=== PATIENT | female | born 1935 | race Caucasian/White ===

== ENCOUNTER 2019-11-30 05:26 | Inpatient (IN) | payer MEDICARE, OTHER ==
[~2019-11-30] VITALS: Ht 152.4 cm; Wt 59.4 kg
--- NOTE | 2019-11-30 05:39 | NUR ---
PATIENT CAME TO ER BED 2 C/O SOB BIB RA. PATIENT IS IRISH SPEAKING ONLY. PATIENT IS AAOX4. BREATHING EVENLY AND UNLABORED ON ROOM AIR. CONNECTED TO THE MONITOR.
--- NOTE | 2019-11-30 05:43 | NUR ---
NOTICED O2 AT 90% ON 4 LITERS. PT PLACED ON 6 LITERS O2 SATTING AT 97%. MADE AWARE
[2019-11-30 05:49] LABS: BASOPHILS % (AUTO) 0.4 % (0.0-2.0); EOSINOPHILS % (AUTO) 0.3 % (0.0-6.0); HEMATOCRIT 28 % (33-45); HEMOGLOBIN 9.6 g/dL (11.5-14.8); LYMPHOCYTES # (AUTO) 1.7 /CMM (0.8-4.8); LYMPHOCYTES % (AUTO) 15.6 % (20.0-44.0); MEAN CORPUSCULAR HGB CONC 35 g/dl (31.0-36.0); MEAN CORPUSCULAR VOLUME 86 fL (82-100); MONOCYTES # (AUTO) 1.2 /CMM (0.1-1.30); MONOCYTES % (AUTO) 10.8 % (2.0-12.0); NEUTROPHILS # (AUTO) 7.8 /CMM (1.8-8.9); NEUTROPHILS % (AUTO) 72.9 % (43.0-81.0); PLATELET COUNT (AUTO) 268 /CMM (150-450); RED BLOOD CELL COUNT(AUTO) 3.24 MIL/uL (4.0-5.2); WHITE BLOOD COUNT (AUTO) 10.7 K/uL (4.3-11.0)
[2019-11-30 06:50] LABS: CALCIUM, SERUM 9.3 mg/dL (8.5-10.1); CARBON DIOXIDE 32 mmol/L (21-32); CHLORIDE 96 mmol/L (98-107); CREATININE 3.9 mg/dL (0.6-1.3); GLUCOSE 156 mg/dL (74-106); POTASSIUM 3.2 mmol/L (3.5-5.1); SODIUM SERUM 137 mmol/L (136-145); UREA NITROGEN, BLOOD 22 mg/dL (7-18)
--- NOTE | 2019-11-30 07:30 | NUR ---
PT ASLEEP, EASILY AWAKEN BY VERBAL STIMULI. DENIES CP, SOB, DIZZINESS, N/V AT THIS TIME. WILL CONT TO MONITOR.
--- NOTE | 2019-11-30 08:24 | NUR ---
[facility] PAGED
[2019-11-30] MEDS ORDERED: BUME0.5T5 PO (08:25)
[2019-11-30] MEDS ORDERED: SEVE800T28 PO (08:25)
[2019-11-30] MEDS ORDERED: LISI10TA5 PO (08:25)
[2019-11-30] MEDS ORDERED: LEVO75TA7 PO (08:25)
[2019-11-30] MEDS ORDERED: AMLO10TA7 PO (08:25)
[2019-11-30] MEDS ORDERED: ATOR10TA PO (08:25)
[2019-11-30] MEDS ORDERED: INSU100V27 SQ (08:25)
[2019-11-30] MEDS ORDERED: METO25TA3 PO (08:25)
[2019-11-30] MEDS ORDERED: INSU300I SQ (08:25)
[2019-11-30] MEDS ORDERED: GABA-532 PO (08:25)
[2019-11-30] MEDS ORDERED: APIX2.5T PO (08:25)
[2019-11-30] MEDS ORDERED: CHOL100040 PO (08:25)
--- NOTE | 2019-11-30 08:32 | NUR ---
CALLED HOUSE SUP FOR TELE BED.
--- NOTE | 2019-11-30 08:57 | NUR ---
NURSING SUP GAVE TELE BED [id number]. NURSE NAME ROSALIE.
[2019-11-30] MEDS ORDERED: Z GUARD REMEDY 2 OZ OINT TP PRN (09:30)
[2019-11-30] MEDS ORDERED: ONDANSETRON HCL/PF 4 MG/2 ML VIAL IVP PRN (09:30)
[2019-11-30] MEDS ORDERED: HYDROCODONE/APAP 5/325MG TABLET PO PRN (09:30)
[2019-11-30] MEDS ORDERED: MAG HYDROX/AL HYDROX/SIMETH 30 ML UDC PO PRN (09:30)
[2019-11-30] MEDS ORDERED: ACETAMINOPHEN 325 MG TABLET PO PRN (09:30)
[2019-11-30] MEDS ORDERED: DEXTROSE 50%-WATER 50 ML DISP.SYRIN IV PRN (09:30)
[2019-11-30] MEDS ORDERED: MAGNESIUM HYDROXIDE 30 ML UDC PO PRN (09:30)
--- NOTE | 2019-11-30 10:00 | NUR ---
PT SITTING UP, RR EVEN & UNLABORED. NAD NOTED AT THIS TIME. WILL CONT TO MONITOR.
--- NOTE | 2019-11-30 10:58 | NUR ---
PT STARTED C/O SOB, O2 SAT ON 6L 85%. PLACED ON 15L PER ERMD ORDER, 02 SAT 100%, PT LATHA WELL. PT STABLE AT THIS TIME. DENIES CP, DIZZINESS, N/V AT THIS TIME. WILL CONT TO MONITOR.
[2019-11-30] MEDS ORDERED: FUROSEMIDE 40 MG/4 ML VIAL IV SCH (11:00)
--- NOTE | 2019-11-30 11:15 | NUR ---
PLACED ON 6L OF O2 LATHA WELL, O2 SAT 100% AT THIS TIME. WILL CONT TO MONITOR.
[2019-11-30] MEDS ORDERED: FUROSEMIDE 40 MG/4 ML VIAL ONE (11:25)
[2019-11-30] MEDS: FUROSEMIDE 40 MG/4 ML VIAL IV SCH ×2 (11:29→18:43)
--- NOTE | 2019-11-30 11:35 | NUR ---
REPORT GIVEN TO ALHAJI HAWKINS FOR SUNSHINE.
--- NOTE | 2019-11-30 11:50 | NUR ---
NEON GLASS BLOWERGAS OPERATIONS ANALYST NOTES Received Patient resting in bed. A/O x 4, Honduran speaking. VS stable with no acute distress. Breathing even and unlabored on 6LPM via NC with no respiratory distress. Denies pain. No signs and symptoms of pain. Skin clean and intact. Telemonitor in place and patent reading SR with HR-76. RUCW Permacath clean and intact. 20g PIV on left hand clean, intact, patent and flushing well. Safety precautions in place. Bed locked and set to lowest position with side rails x 2 up. All needs rendered at this time. Call light within reach. Will continue to monitor.
[2019-11-30] MEDS: BLOOD SUGAR DIAGNOSTIC 1 EACH STRIP VI SCH ×3 (12:03→21:43)
[2019-11-30] MEDS: GABAPENTIN 300 MG CAPSULE PO SCH (12:32)
[2019-11-30] MEDS: CHOLECALCIFEROL 1,000 UNIT TABLET (VIT D3) PO SCH (12:32)
[2019-11-30] MEDS: SEVELAMER CARBONATE 800 MG TABLET PO SCH ×2 (12:32→18:44)
[2019-11-30] MEDS: INSULIN REGULAR, HUMAN 100 UNIT/ML 3 ML VIAL SQ PRN (12:35)
[2019-11-30] MEDS ORDERED: BUMETANIDE 0.5 MG PO SCH (17:00)
[2019-11-30] MEDS: AMLODIPINE BESYLATE 10 MG TABLET PO SCH (18:44)
[2019-11-30] MEDS: APIXABAN 2.5 MG TABLET PO SCH (18:47)
--- NOTE | 2019-11-30 19:06 | NUR ---
ETIQUETTE TEACHER CLOSING NOTES Patient resting in bed. A/O x 4, Setswana speaking. VS stable with no acute distress. Breathing even and unlabored on 10LPM via humidified NC with no respiratory distress. Denies pain. No signs and symptoms of pain. Telemonitor in place and patent reading SR with HR-66. RUCW Permacath clean and intact. 20g PIV on left hand clean, intact, patent and flushing well. Safety precautions in place. Bed locked and set to lowest position with side rails x 2 up. All needs rendered at this time. Call light within reach. Will endorse plan of care to oncoming shift.
--- NOTE | 2019-11-30 19:43 | NUR ---
RN OPENING NOTES PATIENT RECEIVED RESTING IN BED A/O X 4. ON 10 L OF O2 WITH HUMIDIFIED NC WITH BREATHING EVEN AND LABORED. NO SIGNS OF ACUTE DISTRESS. NO COMPLAINTS OF PAIN OR DISCOMFORT AT THE MOMENT. IV LOCATED ON L HAND #20 SL. RCW PERMCATH NOTED AND IN PLACE. SAFETY PRECAUTIONS IN PLACE WITH BED IN LOWEST POSITION, CALL LIGHT WITHIN REACH, BREAKS ON, SIDE RAILS UP. WILL CONTINUE TO MONITOR THROUGHOUT THE NIGHT.
[2019-11-30 20:00] VITALS: BP 146/70
[2019-11-30] MEDS: *INSULIN REGULAR(HUMULIN R)HUM 100 UNIT/ML VIAL SQ PRN (21:43)
[2019-12-01] VITALS: BP 140/69
--- NOTE | 2019-12-01 02:41 | NUR ---
RN NOTES BRIDGE GANG WORKER INFORMED PATIENT WENT FROM SR TO CONTROLLED A FIB. BPM DEVELOPER JOSUE INFORMED AND STAT EKG ORDERED. ORDER CARRIED OUT. WILL CONTINUE TO MONITOR.
--- NOTE | 2019-12-01 03:27 | NUR ---
RN NOTES EKG RESULTS RELAYED TO REUBEN SALAS. METOPROLOL 5MG IVP ONE TIME ORDERED. ORDERS CARRIED OUT. WILL MONITOR FOR CHANGE IN TELE MONITOR.
[2019-12-01] MEDS ORDERED: METOPROLOL TARTRATE INJ 5 MG/5 ML AMPUL IVP ONE (03:30)
[2019-12-01] MEDS: BLOOD SUGAR DIAGNOSTIC 1 EACH STRIP VI SCH ×4 (06:47→21:38)
[2019-12-01] MEDS: INSULIN REGULAR, HUMAN 100 UNIT/ML 3 ML VIAL SQ PRN ×3 (06:48→18:05)
--- NOTE | 2019-12-01 07:01 | NUR ---
RN CLOSING NOTES PATIEN RESTING IN BED A/O X 4. ON 5L L OF O2 WITH HUMIDIFIED NC WITH BREATHING EVEN AND LABORED. NO SIGNS OF ACUTE DISTRESS. NO COMPLAINTS OF PAIN OR DISCOMFORT AT THE MOMENT. IV LOCATED ON L HAND #20 SL. TELE MONITOR READING A FIB. RCW PERMCATH NOTED AND IN PLACE. SAFETY PRECAUTIONS IN PLACE WITH BED IN LOWEST POSITION, CALL LIGHT WITHIN REACH, BREAKS ON, SIDE RAILS UP. ALL NEEDS NEEDS ATTENDED TO. PATIENT KEPT CLEAN AND DRY THROUGHOUT THE NIGHT. WILL ENDORSE TO ONCOMING SHIFT ABOUT SUNSHINE.
--- NOTE | 2019-12-01 07:30 | NUR ---
TELE/RN OPENING NOTE Received patient in bed, A&O x 4, greek speaking. Denies any pain/discomfort at this time. Breathing even and non-labored, no SOB noted. No respiratory or cardiac distress noted. On tele monitor, reading Afib 87. IV access noted on L hand #20 g, patent and intact, and flushing well. Right chest wall permacath in place. Bed locked to its lowest position, side rails x 2 up, call light in reach. Will continue with current medical management. Addendum: 12/01/19 at 0759 by LANCE GUERRA RN On 5L humidified oxygen via NC
[2019-12-01 07:34] LABS: BASOPHILS % (AUTO) 0.3 % (0.0-2.0); EOSINOPHILS % (AUTO) 0.7 % (0.0-6.0); HEMATOCRIT 28 % (33-45); HEMOGLOBIN 9.4 g/dL (11.5-14.8); LYMPHOCYTES # (AUTO) 1.4 /CMM (0.8-4.8); LYMPHOCYTES % (AUTO) 14.4 % (20.0-44.0); MEAN CORPUSCULAR HGB CONC 34 g/dl (31.0-36.0); MEAN CORPUSCULAR VOLUME 87 fL (82-100); MONOCYTES # (AUTO) 1.1 /CMM (0.1-1.30); MONOCYTES % (AUTO) 10.8 % (2.0-12.0); NEUTROPHILS # (AUTO) 7.4 /CMM (1.8-8.9); NEUTROPHILS % (AUTO) 73.8 % (43.0-81.0); PLATELET COUNT (AUTO) 252 /CMM (150-450); RED BLOOD CELL COUNT(AUTO) 3.16 MIL/uL (4.0-5.2)
[2019-12-01 07:36] LABS: ALANINE AMINOTRANSFERASE 16 U/L (12-78); ALKALINE PHOSPHATASE 120 U/L (46-116); ASPARTATE AMINOTRANSFERASE 22 U/L (15-37); BILIRUBIN,TOTAL 1.3 mg/dL (0.2-1.0); CALCIUM, SERUM 9.3 mg/dL (8.5-10.1); CARBON DIOXIDE 30 mmol/L (21-32); CHLORIDE 99 mmol/L (98-107); CREATININE 4.1 mg/dL (0.6-1.3); GLUCOSE 142 mg/dL (74-106); MAGNESIUM 2.3 mg/dL (1.8-2.4); PHOSPHORUS 2.5 mg/dL (2.5-4.9); POTASSIUM 4.1 mmol/L (3.5-5.1); SODIUM SERUM 137 mmol/L (136-145); TOTAL PROTEIN, SERUM 7.8 g/dL (6.4-8.2); UREA NITROGEN, BLOOD 19 mg/dL (7-18)
[2019-12-01] MEDS: LEVOTHYROXINE SODIUM 75 MCG TABLET PO SCH (08:21)
[2019-12-01] MEDS: SEVELAMER CARBONATE 800 MG TABLET PO SCH ×3 (08:21→18:03)
[2019-12-01] MEDS: FUROSEMIDE 40 MG/4 ML VIAL IV SCH ×2 (08:26→17:00)
[2019-12-01] MEDS: METOPROLOL SUCCINATE 50 MG TAB.SR.24H PO SCH (08:27)
[2019-12-01] MEDS: CHOLECALCIFEROL 1,000 UNIT TABLET (VIT D3) PO SCH (08:27)
[2019-12-01] MEDS: GABAPENTIN 300 MG CAPSULE PO SCH (08:28)
[2019-12-01] MEDS: ATORVASTATIN 10 MG TABLET PO SCH (08:29)
[2019-12-01] MEDS: LISINOPRIL (10MG) 10 MG TABLET PO SCH (08:29)
[2019-12-01] MEDS: APIXABAN 2.5 MG TABLET PO SCH ×2 (08:30→17:00)
[2019-12-01] MEDS ORDERED: AMIODARONE 450 MG in IV D5W 250 ML IV PRN (09:00)
[2019-12-01] MEDS ORDERED: AMIODARONE 150 MG in IV D5W 100 ML IV ONE (09:30)
--- NOTE | 2019-12-01 11:10 | NUR ---
TELE/RN NOTE Patient transferred to [facility] via bed with all medications and belongings in hand. Denies any pain/discomfort at this time. Breathing even and non-labored on 5 L oxygen via NC. No cardiac distress noted. On tele monitor reading Afib 81. IV access on L hand #20 g remained patent and intact. R chest permacath in place. Endorsed to [facility] nurse for SUNSHINE.
--- NOTE | 2019-12-01 11:15 | NUR ---
RN NOTES RECEIVED PT FROM [facility]. ON AMIO DRIP. VS STABLE. WILL CONTINUE TO MONITOR
[2019-12-01] MEDS: AMIODARONE 450 MG in IV D5W 250 ML IV PRN ×2 (11:37→19:28)
--- NOTE | 2019-12-01 13:12 | NUR ---
RN WILL CALL DUE TO HIGH CRE 4.1
[2019-12-01] MEDS: AMLODIPINE BESYLATE 10 MG TABLET PO SCH (18:01)
--- NOTE | 2019-12-01 19:30 | NUR ---
RN OPENING NOTES, PATIENT RESTING IN BED AWAKE A/O X 4, ABLE TO VERBALIZED NEEDS AND CONCERNS, ON 5L HUMIDIFIED O2 VIA NC. WITH OPTIMAL O2 SAT LEVEL, NO SOB OR ANY ACUTE REPARATORY DISTRESS AT THIS TIME, NO COMPLAINS OF CHEST PAIN, WITH LEFT HAND PATENT AND INTACT, ON AMIO DRIP INFUSING WELL AND PATIENT TOLERATED WELL, ALL NEEDS ATTENDED, SAFETY MEASURES OBSERVED, CALL LIGHT WITHIN REACH, BED LOCKED AND AT LOWEST POSITION, WILL CONTINUE TO MONITOR CLOSELY.
--- NOTE | 2019-12-01 19:46 | NUR ---
RN CLOSING NOTES PT RESTING IN BED. A/O X 4. ON 5L HUMIDIFIED O2 VIA NC. NO SOB. NO PAIN REPORTED AT THIS TIME. WITH RENARD INTACT, PATENT AND FLUSHED. AMIO DRIP INFUSING WELL. ALL MEDS GIVEN, NEEDS ATTENDED. SAFETY MEASURES OBSERVED. CALL LIGHT WITHIN REACH. BED LOCKED AND AT LOWEST POSITION. WILL ENDORSE TO NIHGT SHIFT FOR SUNSHINE
[2019-12-01 20:00] VITALS: BP 158/88
--- NOTE | 2019-12-01 21:05 | NUR ---
RN TD NOTES, ENDORSED BY CHARGE NURSE THAT PATIENT SUPPOSE TO HAVE HD TODAY BUT BECAUSE SHE IS IN AMIODARONE DRIP SHE WILL HAVE TOMORROW, HD NURSE HERE AT THIS TIME TO START HD, AND TOLD HER THAT WAS ENDORSED TO ME NO HD TILL TOMORROW, SHE SAID NO THEY ALWAYS TO IT LIKE THAT WITH PATIENT ON MEDICATION IN ICU, CALLED PRECISION DYER HOT WALKER JOSUE HERNANDES AND PER HER CALLED THE HAIR CLIPPER POWER TO MAKE SURE, CALLED DR RAY AND ASKED HIM IF HE WANTS HD TO BE DONE TODAY OR NO AND ADVISED HIM THAT PATIENT IN ON AMIODARONE, STATED IS OK TO DO HD.
--- NOTE | 2019-12-01 21:14 | NUR ---
RN TD NOTES, PATIENT ON HD AT THIS TIME, HR DROP TO 36 ON TELE MONITOR FOR A SECOND AND GOT CONVERTED TO NSR RIGHT AWAY INCREASED TO 50S AND RIGHT AWAY TO 60S, NO COMPLAIN OR ANY DISCOMFORT FROM PATIENT, WILL CONTINUE TO MONITOR CLOSELY.
[2019-12-01] MEDS: *INSULIN REGULAR(HUMULIN R)HUM 100 UNIT/ML VIAL SQ PRN (21:46)
--- NOTE | 2019-12-01 23:00 | NUR ---
RN CORRIE NOTES, HD DONE AT THIS TIME, 3000ML REMOVED, PATIENT A/O X4, NO COMPLAINS PAIN, DISTRESS OR ANY DISCOMFORT, WITH STABLE VITAL SIGNS, SBP IN 120S AT THIS TIME, PATIENT CONTINUE NSR IN TELE MONITOR WITH HR IN 60S, WILL CONTINUE TO MONITOR CLOSELY.
[2019-12-02] VITALS: BP 151/51
[2019-12-02 04:00] VITALS: BP 142/55
--- NOTE | 2019-12-02 06:26 | NUR ---
RN CLOSING NOTES, PATIENT ASLEEP AT THIS TIME BUT AROUSES TO VERBAL STIMULI, , ON 5L HUMIDIFIED O2 VIA NC WITH OPTIMAL O2 SAT LEVEL, NO SOB OR ANY ACUTE REPARATORY DISTRESS AT THIS TIME, NO COMPLAINS OF CHEST PAIN, WITH LEFT HAND PATENT AND INTACT, CONTINUE ON ON AMIO DRIP INFUSING WELL AND PATIENT TOLERATED WELL, WILL BE DONE THIS MORNING. AFIB GOT CONVERTED TO NSR LAST NIGHT AND CONTINUE NORMAL SINUS AT THIS TIME WITH HR 60S AT THIS TIME, S/P HD LAST NIGHT 2L OF FLUID REMOVED, WILL HAVE CT ANGIOGRAM TODAY , WILL HAVE MIDLINE INSERTION THIS MORNING, ALL NEEDS ATTENDED, SAFETY MEASURES OBSERVED, CALL LIGHT WITHIN REACH, BED LOCKED AND AT LOWEST POSITION, WILL ENDORSE CONTINUITY OF CARE TO ONCOMING NURSE.
[2019-12-02 07:08] LABS: CARBON DIOXIDE 25 mmol/L (21-32); CHLORIDE 98 mmol/L (98-107); CREATININE 4.1 mg/dL (0.6-1.3); GLUCOSE 249 mg/dL (74-106); POTASSIUM 4.3 mmol/L (3.5-5.1); SODIUM SERUM 133 mmol/L (136-145); UREA NITROGEN, BLOOD 32 mg/dL (7-18)
[2019-12-02 07:14] LABS: BASOPHILS % (AUTO) 0.3 % (0.0-2.0); EOSINOPHILS % (AUTO) 1.2 % (0.0-6.0); HEMATOCRIT 28 % (33-45); HEMOGLOBIN 9.4 g/dL (11.5-14.8); LYMPHOCYTES # (AUTO) 1.7 /CMM (0.8-4.8); LYMPHOCYTES % (AUTO) 15.2 % (20.0-44.0); MEAN CORPUSCULAR HGB CONC 34 g/dl (31.0-36.0); MEAN CORPUSCULAR VOLUME 86 fL (82-100); MONOCYTES # (AUTO) 1.2 /CMM (0.1-1.30); MONOCYTES % (AUTO) 10.7 % (2.0-12.0); NEUTROPHILS % (AUTO) 72.6 % (43.0-81.0); PLATELET COUNT (AUTO) 274 /CMM (150-450); RED BLOOD CELL COUNT(AUTO) 3.22 MIL/uL (4.0-5.2); WHITE BLOOD COUNT (AUTO) 11.1 K/uL (4.3-11.0)
[2019-12-02 08:00] VITALS: BP 127/84
--- NOTE | 2019-12-02 08:00 | NUR ---
tiffany rn note patient in bed , alert oriented x4 on tele monitor sb hr 59 on4l of o2 as ordered , n sob noted dr gresham at bedside aware that amiodarone drip will be complected soon, stated that will check it out, lt hand hl intact and flushed well , rt chest Perma cath in place , call light with in reach , bed in lowest and locked position, plan of care discussed with patient, will cont to monitor
[2019-12-02] MEDS: CHOLECALCIFEROL 1,000 UNIT TABLET (VIT D3) PO SCH (08:18)
[2019-12-02] MEDS: SEVELAMER CARBONATE 800 MG TABLET PO SCH ×3 (08:19→17:36)
[2019-12-02] MEDS: ATORVASTATIN 10 MG TABLET PO SCH (08:19)
[2019-12-02] MEDS: APIXABAN 2.5 MG TABLET PO SCH ×2 (08:21→17:35)
[2019-12-02] MEDS: LEVOTHYROXINE SODIUM 75 MCG TABLET PO SCH (08:21)
[2019-12-02] MEDS: LISINOPRIL (10MG) 10 MG TABLET PO SCH (08:22)
[2019-12-02] MEDS: GABAPENTIN 300 MG CAPSULE PO SCH (08:22)
[2019-12-02] MEDS: METOPROLOL SUCCINATE 50 MG TAB.SR.24H PO SCH (08:23)
[2019-12-02] MEDS: FUROSEMIDE 40 MG/4 ML VIAL IV SCH ×2 (08:24→17:34)
[2019-12-02] MEDS: BLOOD SUGAR DIAGNOSTIC 1 EACH STRIP VI SCH ×4 (08:27→21:53)
[2019-12-02] MEDS: INSULIN REGULAR, HUMAN 100 UNIT/ML 3 ML VIAL SQ PRN ×3 (08:31→17:52)
--- NOTE | 2019-12-02 09:00 | NUR ---
telephone mechanic note report given to janeen wallis for cont care
--- NOTE | 2019-12-02 09:38 | NUR ---
RN NOTES RECEIVED REPORT FROM MEIR FOR SUNSHINE
--- NOTE | 2019-12-02 09:53 | NUR ---
PT. HAS NO IV YET. SPOKE WITH ESPERANZA (CHARGE NURSE) MIDLINE NURSE WILL COME IN AT 1300 TODAY.
[2019-12-02 12:00] VITALS: BP 145/56
[2019-12-02] MEDS: AMIODARONE HCL 200 MG TABLET PO SCH ×2 (13:15→17:35)
[2019-12-02] MEDS ORDERED: IOHEXOL-350 100 ML VIAL IV ONE (15:59)
[2019-12-02 16:00] VITALS: BP 111/54
[2019-12-02] MEDS ORDERED: IV NS 0.9% 250 ML IV ONE (16:00)
[2019-12-02] MEDS: AMLODIPINE BESYLATE 10 MG TABLET PO SCH (17:36)
--- NOTE | 2019-12-02 18:30 | NUR ---
RN CLOSING NOTES, PATIENT ASLEEP AT THIS TIME BUT AROUSES TO VERBAL STIMULI, , ON 5L HUMIDIFIED O2 VIA NC WITH OPTIMAL O2 SAT LEVEL, 96%, NO SOB OR ANY ACUTE REPARATORY DISTRESS AT THIS TIME, NO COMPLAINS OF CHEST PAIN, SR ON MONITOR. WITH LEFT HAND PATENT AND INTACT, RIGHT UPPER ARM MIDLINE IN PLACE DONE EARLIER FOR CT PULM ANGIOGRAM, WAS ON AMIO DRIP IV, NOW ON ORAL AMIODARONE. ALL NEEDS ATTENDED, SAFETY MEASURES OBSERVED, CALL LIGHT WITHIN REACH, BED LOCKED AND AT LOWEST POSITION, WILL ENDORSE TO NEXT SHIFT FOR CONTINUITY OF CARE.
--- NOTE | 2019-12-02 19:50 | NUR ---
AUTO HAULER OPENING NOTES PATIENT AWAKE IN BED. A/OX4; PRIMARY LANGUAGE MALAY. ON 5L NC; PATIENT DENIES SOB OR PAIN AT THIS TIME; BREATHING IS EVEN AND UNLABORED. TELE MONITOR READING NSR, HEART RATE 66. MIDLINE PRESENT ON RIGHT UPPER ARM, INTACT & PATENT, HEP LOCKED. IV PRESENT ON LEFT HAND, SIZE 20, INTACT & PATENT, HEP LOCKED. PERMACATH PRESENT ON RIGHT CHEST WALL. SAFETY MEASURES IN PLACE AND PATIENT'S NEEDS MET. BED LOCKED, ALARM ON, SIDE RAILS X2, CALL LIGHT WITHIN REACH. WILL CONTINUE TO MONITOR.
[2019-12-02 20:00] VITALS: BP 151/50
--- NOTE | 2019-12-02 20:42 | NUR ---
Patient is alert and pleasant, primary language is Georgian. States she lives locally with her spouse and daughter. Has a cane and walker as needed for mobility, with no homehealth reported. Has good family support. Current dc plan is to return home when discharge. Addendum: 12/02/19 at 204 by SHORTY LEY RN Amended: Links added.
[2019-12-02] MEDS: *INSULIN REGULAR(HUMULIN R)HUM 100 UNIT/ML VIAL SQ PRN (22:21)
[2019-12-03] VITALS (7 sets, daily range): BP systolic 109–153; BP diastolic 54–76
--- NOTE | 2019-12-03 00:48 | NUR ---
FOLLOW UP MANAGER NOTES PATIENT COMPLETED HEMODIALYSIS; 3L TOTAL OUTPUT. VITAL SIGNS WNL. PATIENT DENIES ANY SOB OR PAIN AT THIS TIME. WILL CONTINUE TO MONITOR.
--- NOTE | 2019-12-03 02:56 | NUR ---
AGRICULTURAL PLOW OPERATOR NOTES PATIENT C/O OF SHARP BILATERAL FEET PAIN RATED 7/10. ADMINISTERED PRN NORCO 5MG PO PER PATIENT'S REQUEST. VITAL SIGNS - BP: 140/69, HR: 73. CALL LIGHT WITHIN REACH. WILL CONTINUE TO MONITOR.
--- NOTE | 2019-12-03 06:36 | NUR ---
TANKERMAN CLOSING NOTES PATIENT SLEEPING, AWAKENS TO VERBAL STIMULI. A/OX4. ON 4L NC; NO S/S OF ACUTE RESPIRATORY DISTRESS; BREATHING IS EVEN AND UNLABORED. NO S/S OF PAIN NOTED. TELE MONITOR READING A-FLUTTER, HEART RATE 81. MIDLINE PRESENT ON RIGHT UPPER ARM, INTACT & PATENT, HEP LOCKED. IV PRESENT ON LEFT HAND, SIZE 20, INTACT & PATENT, HEP LOCKED. PERMACATH PRESENT ON RIGHT CHEST WALL; DRESSING DRY AND INTACT. SAFETY MEASURES IN PLACE AND PATIENT'S NEEDS MET. BED LOCKED, ALARM ON, SIDE RAILS X2, CALL LIGHT WITHIN REACH. WILL ENDORSE TO DAY SHIFT RN PLAN OF CARE.
[2019-12-03] MEDS: INSULIN REGULAR, HUMAN 100 UNIT/ML 3 ML VIAL SQ PRN ×3 (07:33→17:34)
[2019-12-03] MEDS: BLOOD SUGAR DIAGNOSTIC 1 EACH STRIP VI SCH ×4 (07:34→21:56)
[2019-12-03] MEDS: LEVOTHYROXINE SODIUM 75 MCG TABLET PO SCH (07:42)
[2019-12-03] MEDS: SEVELAMER CARBONATE 800 MG TABLET PO SCH ×3 (07:42→17:31)
--- NOTE | 2019-12-03 07:43 | NUR ---
TELE/RN OPENING NOTES RECEIVED PATIENT AWAKE ON BED. ALERT AND ORIENTED X4. PATIENT IS ON OXYGEN 4L VIA NASAL CANNULA. PATIENT IN RESPIRATORY DISTRESS NOTED. DENIES PAIN AT THIS TIME. PATIENT IN ON TELE MONITOR READING SR 90 BPM. WILL CONTINUE TO MONITOR. Addendum: 12/03/19 at 0803 by MAMADOU KUHN RN ERROR
[2019-12-03 07:53] LABS: CALCIUM, SERUM 8.7 mg/dL (8.5-10.1); CARBON DIOXIDE 26 mmol/L (21-32); CHLORIDE 101 mmol/L (98-107); CREATININE 3.2 mg/dL (0.6-1.3); GLUCOSE 155 mg/dL (74-106); POTASSIUM 3.7 mmol/L (3.5-5.1); SODIUM SERUM 136 mmol/L (136-145); UREA NITROGEN, BLOOD 18 mg/dL (7-18)
--- NOTE | 2019-12-03 08:03 | NUR ---
TELE/RN OPENING NOTES RECEIVED PATIENT AWAKE ON BED. ALERT AND ORIENTED X4. PATIENT IS ON OXYGEN 4L VIA NASAL CANNULA. PATIENT IN NO RESPIRATORY DISTRESS NOTED. DENIES PAIN AT THIS TIME. PATIENT IN ON TELE MONITOR READING A-FIB. WILL CONTINUE TO MONITOR.
[2019-12-03] MEDS: FUROSEMIDE 40 MG/4 ML VIAL IV SCH ×2 (08:20→16:27)
[2019-12-03] MEDS: CHOLECALCIFEROL 1,000 UNIT TABLET (VIT D3) PO SCH (08:21)
[2019-12-03] MEDS: ATORVASTATIN 10 MG TABLET PO SCH (08:21)
[2019-12-03] MEDS: GABAPENTIN 300 MG CAPSULE PO SCH (08:21)
[2019-12-03] MEDS: APIXABAN 2.5 MG TABLET PO SCH ×2 (08:24→16:29)
[2019-12-03] MEDS: LISINOPRIL (10MG) 10 MG TABLET PO SCH (08:33)
[2019-12-03] MEDS: AMIODARONE HCL 200 MG TABLET PO SCH ×3 (08:33→16:27)
[2019-12-03] MEDS: METOPROLOL SUCCINATE 50 MG TAB.SR.24H PO SCH (08:34)
--- NOTE | 2019-12-03 09:48 | NUR ---
TELE/RN NOTES BLOOD PRESSURE MEDICATION IS WITH HELD DUE TO BP 115/54 P 76. WILL CONTINUE TO MONITOR.
--- NOTE | 2019-12-03 16:34 | NUR ---
TELE/RN NOTES BLOOD PRESSURE MEDICATION IS WITH HELD DUE TO BP 109/61 P 69. WILL CONTINUE TO MONITOR.
[2019-12-03] MEDS: AMLODIPINE BESYLATE 10 MG TABLET PO SCH (17:26)
--- NOTE | 2019-12-03 18:56 | NUR ---
TELE/RN CLOSING NOTES PATIENT IS ON BED. ALERT AND ORIENTED X4. PATIENT DENIES PAIN AT THIS TIME. PATIENT IS ON OXYGEN 4L VIA NASAL CANNULA. PATIENT IN NO APPARENT RESPIRATORY DISTRESS NOTED. PATIENT IN TELE MONITOR IN PLACED READING A FIB HR 85 BPM. IV ACCESS AT RIGHT UPPER ARM MIDLINE # 18 AND LEFT HAND # 20 SALINE LOCKED PATENT AND INTACT. SEEN AND EXAMINED BY MD WITH ORDERS MADE AND CARRIED OUT. ALL DUE MEDICATIONS WAS GIVEN. SAFETY PRECAUTION WAS IN PLACED. BED IN LOWEST POSITION AND LOCKED, SIDERAILS UP X2. CALL LIGHT WITHIN REACH. WILL ENDORSED TO SCULLION CHIEF FOR SUNSHINE.
--- NOTE | 2019-12-03 19:25 | NUR ---
TELE/RN OPENING NOTES RECEIVED PATIENT AWAKE ON BED. ALERT AND ORIENTED X4. PATIENT IS ON OXYGEN 4L VIA NASAL CANNULA. PATIENT IN NO RESPIRATORY DISTRESS NOTED. DENIES PAIN AT THIS TIME. PATIENT IN ON TELE MONITOR READING A-FIB. SAFETY MEASURE MAINTAINED BED ON LOWEST POSITION AND LOCKED CALL LIGHT WITHIN REACH WILL CONTINUE TO MONITOR
[2019-12-03] MEDS: *INSULIN REGULAR(HUMULIN R)HUM 100 UNIT/ML VIAL SQ PRN (21:57)
[2019-12-04] VITALS: BP 123/70
[2019-12-04 04:00] VITALS: BP 148/67
[2019-12-04 06:51] LABS: CALCIUM, SERUM 9.4 mg/dL (8.5-10.1); CARBON DIOXIDE 24 mmol/L (21-32); CHLORIDE 96 mmol/L (98-107); CREATININE 5.4 mg/dL (0.6-1.3); GLUCOSE 230 mg/dL (74-106); MAGNESIUM 2.4 mg/dL (1.8-2.4); POTASSIUM 4.2 mmol/L (3.5-5.1); SODIUM SERUM 133 mmol/L (136-145); UREA NITROGEN, BLOOD 46 mg/dL (7-18)
--- NOTE | 2019-12-04 07:00 | NUR ---
RN CLOSING NOTES PT ON BED A/OX3 ABLE TO VERBALIZED NEEDS, ON O2 4L WITH SPO2 98% TELE MONITOR READ CONTROLLED AFIB 80,S NO SIGNIFICANT CHANGES ON CONDITION NOTED ALL NEEDS ATTENDED SAFETY MEASURE MAINTAINED BED ON LOWEST POSITION AND LOCKED SIDE RAILS UP CALL LIGHT WITHIN REACH WILL ENDORSED TO AM SHIFT NURSE
--- NOTE | 2019-12-04 07:10 | NUR ---
PESTICIDE APPLICATOR OPENING NOTES RECEIVED PATIENT AWAKE ON BED. A/O X4. ON O2 4L VIA NC SATURATING @ 98%. NO SOB OR ANY RESPIRATORY DISTRESS NOTED. NO PAIN REPORTED AT THIS TIME. TELE MONITOR SHOWS A-FIB. ANDREE MIDLINE INTACT, PATENT AND FLUSHED. L HAND #20 INTACT, PATENT AND FLUSHED. RIGHT CHEST WALL PERMACATH FOR HD NOTED. SAFETY MEASURES OBSERVED. CALL LIGHT WITHIN REACH. BED LOCKED AND AT LOWEST POSITION. WILL CONTINUE TO MONITOR
[2019-12-04] MEDS: BLOOD SUGAR DIAGNOSTIC 1 EACH STRIP VI SCH ×2 (07:30→12:08)
[2019-12-04 08:00] VITALS: BP 140/76
[2019-12-04] MEDS: SEVELAMER CARBONATE 800 MG TABLET PO SCH ×2 (08:16→12:09)
[2019-12-04] MEDS: CHOLECALCIFEROL 1,000 UNIT TABLET (VIT D3) PO SCH (08:16)
[2019-12-04] MEDS: LEVOTHYROXINE SODIUM 75 MCG TABLET PO SCH (08:16)
[2019-12-04] MEDS: GABAPENTIN 300 MG CAPSULE PO SCH (08:16)
[2019-12-04] MEDS: AMIODARONE HCL 200 MG TABLET PO SCH ×2 (08:17→12:10)
[2019-12-04] MEDS: LISINOPRIL (10MG) 10 MG TABLET PO SCH (08:17)
[2019-12-04] MEDS: ATORVASTATIN 10 MG TABLET PO SCH (08:17)
[2019-12-04] MEDS: METOPROLOL SUCCINATE 50 MG TAB.SR.24H PO SCH (08:18)
[2019-12-04] MEDS: APIXABAN 2.5 MG TABLET PO SCH (08:19)
[2019-12-04] MEDS: FUROSEMIDE 40 MG/4 ML VIAL IV SCH (08:20)
[2019-12-04] MEDS: INSULIN REGULAR, HUMAN 100 UNIT/ML 3 ML VIAL SQ PRN ×2 (08:35→12:11)
[2019-12-04 12:00] VITALS: BP 124/62
[2019-12-04 16:00] VITALS: BP 128/72
--- NOTE | 2019-12-04 17:50 | NUR ---
RN NOTES DISCHARGED PT TO HOME ACCOMPANIED BY DAUGHTER DANISH. PT ON STABLE CONDITION. OFFERED FLU AND PNEUMONIA VACCINES. PT REFUSED DESPITE EDUCATION. PT STATES WILL RECEIVE SOMEWHERE ELSE. ALL VS ARE STABLE UPON DISCHARGE.
== END 2019-12-04 17:50 | disposition home or self-care (01) | DRG 291 ==
LOC: ER 05:26 → TELE 08:58 → TELE1 12-01 10:59 → TELE-TD 12-01 18:19 → TELE1 12-02 12:48
PROVIDERS: ADMIT Internal Medicine; ATTEND Nurse Practitioner Acute Care
PROC: 5A1D70Z Performance of Urinary Filtration, Intermittent, Less than 6 Hours Per Day (ICD-10-PCS; principal; 2019-11-30)
PROC: 5A1D70Z Performance of Urinary Filtration, Intermittent, Less than 6 Hours Per Day (ICD-10-PCS; 2019-12-01)
PROC: 05H933Z Insertion of Infusion Device into Right Brachial Vein, Percutaneous Approach (ICD-10-PCS; 2019-12-02)
DX: I13.2 Hypertensive heart and chronic kidney disease with heart failure and with stage 5 chronic kidney disease, or end stage renal disease (principal); I50.33 Acute on chronic diastolic (congestive) heart failure; N18.6 End stage renal disease; J96.90 Respiratory failure, unspecified, unspecified whether with hypoxia or hypercapnia; E11.22 Type 2 diabetes mellitus with diabetic chronic kidney disease; Z99.2 Dependence on renal dialysis; I50.84 End stage heart failure; I16.0 Hypertensive urgency; I27.20 Pulmonary hypertension, unspecified; I48.91 Unspecified atrial fibrillation; E78.5 Hyperlipidemia, unspecified; I70.90 Unspecified atherosclerosis; E11.40 Type 2 diabetes mellitus with diabetic neuropathy, unspecified; E03.9 Hypothyroidism, unspecified; D63.1 Anemia in chronic kidney disease; E87.6 Hypokalemia; Q78.9 Osteochondrodysplasia, unspecified
CPT/HCPCS: 36415; 71045-TC; 80048-TC; 80053-TC; 82962-TC; 83735-TC; 83880; 84100-TC; 84484-TC; 85025-TC; 86706; 87081-TC; 87340; 90935-TC; 93307-TC; 93970-TC; 97112-TC; 97116-TC; 97530-TC; C9803-CS; G0378; J0282; J1815; J1940; J3490; J7050; J7060; Q9967

== ENCOUNTER 2019-12-18 09:57 | Inpatient (IN) | payer MEDICARE, OTHER ==
[~2019-12-18] VITALS: Ht 142.2 cm; Wt 64.5 kg
[~2019-12-18 09:57] MED LIST: AMLO10TA7 PO; APIX2.5T PO; ATOR10TA PO; CHOL100040 PO; GABA-532 PO; INSU100V27 SQ; INSU300I SQ; LEVO75TA7 PO; LISI10TA5 PO; METO25TA3 PO; SEVE800T28 PO
--- NOTE | 2019-12-18 10:04 | NUR ---
DR RIGGINS AT BEDSIDE
--- NOTE | 2019-12-18 10:09 | NUR ---
BIB DAUGHTER AFTER COMPLETION OF DIALYSIS,C/O WEAKNESS AND HGB WAS 7.O AND WAS TOLD THAT SHE NEEDS BLOOD TRANSFUSION, PATIENT ON 3LPM O2 VIA NC. TO ER BED 9, HOOKED TO HEATING AND BLENDING SUPERVISOR, BP CUFF AND POX, CHANGED TO HOSP GOWN, WARM BLANKET PROVIDED, PATIENT AAOx 4, BREATHING EVEN AND UNLABORED, NAD NOTED, NOTED WITH R CHRST PORT-A-CATH, AWAITING MD TAYLOR.
[2019-12-18 10:50] LABS: MONOCYTES # (AUTO) 0.8 /CMM (0.1-1.30); WHITE BLOOD COUNT (AUTO) 10.8 K/uL (4.3-11.0)
[2019-12-18 10:57] LABS: BASOPHILS % (AUTO) 0.4 % (0.0-2.0); EOSINOPHILS % (AUTO) 0.7 % (0.0-6.0); HEMATOCRIT 21 % (33-45); HEMOGLOBIN 7.1 g/dL (11.5-14.8); LYMPHOCYTES % (AUTO) 18.7 % (20.0-44.0); MEAN CORPUSCULAR HGB CONC 34 g/dl (31.0-36.0); MEAN CORPUSCULAR VOLUME 97 fL (82-100); MONOCYTES % (AUTO) 7.5 % (2.0-12.0); NEUTROPHILS # (AUTO) 7.9 /CMM (1.8-8.9); NEUTROPHILS % (AUTO) 72.7 % (43.0-81.0); PLATELET COUNT (AUTO) 237 /CMM (150-450); RED BLOOD CELL COUNT(AUTO) 2.13 MIL/uL (4.0-5.2)
[2019-12-18 11:02] LABS: CALCIUM, SERUM 9.3 mg/dL (8.5-10.1); CARBON DIOXIDE 35 mmol/L (21-32); CHLORIDE 96 mmol/L (98-107); CREATININE 2.2 mg/dL (0.6-1.3); GLUCOSE 124 mg/dL (74-106); POTASSIUM 3.1 mmol/L (3.5-5.1); SODIUM SERUM 137 mmol/L (136-145); UREA NITROGEN, BLOOD 10 mg/dL (7-18)
--- NOTE | 2019-12-18 11:04 | NUR ---
MOVE SHEET SUBMITTED.
[2019-12-18 11:14] LABS: ALANINE AMINOTRANSFERASE 14 U/L (12-78); ALBUMIN 3.2 g/dL (3.4-5.0); ALKALINE PHOSPHATASE 137 U/L (46-116); ASPARTATE AMINOTRANSFERASE 19 U/L (15-37); BILIRUBIN,DIRECT 0.3 mg/dL (0.0-0.2); BILIRUBIN,TOTAL 1.8 mg/dL (0.2-1.0); TOTAL PROTEIN, SERUM 7.9 g/dL (6.4-8.2)
--- NOTE | 2019-12-18 11:15 | NUR ---
[facility] CALLED PERINATOLOGY PHYSICIAN PAGED.
--- NOTE | 2019-12-18 11:43 | NUR ---
PRISM MEASURER AT BEDSIDE FOR XRAY
--- NOTE | 2019-12-18 12:54 | NUR ---
NEGATIVE FOR COVID PER LAB
[2019-12-18] MEDS ORDERED: MORPHINE SULFATE INJ 2 MG/ML DISP.SYRIN IV PRN (14:00)
[2019-12-18] MEDS ORDERED: HYDROCODONE/APAP 5/325MG TABLET PO PRN (14:00)
[2019-12-18] MEDS ORDERED: ONDANSETRON HCL/PF 4 MG/2 ML VIAL IVP PRN (14:00)
[2019-12-18] MEDS ORDERED: MAGNESIUM HYDROXIDE 30 ML UDC PO PRN (14:00)
[2019-12-18] MEDS ORDERED: Z GUARD REMEDY 2 OZ OINT TP PRN (14:00)
[2019-12-18] MEDS ORDERED: DEXTROSE 50%-WATER 50 ML DISP.SYRIN IV PRN (14:00)
[2019-12-18] MEDS ORDERED: MAG HYDROX/AL HYDROX/SIMETH 30 ML UDC PO PRN (14:00)
--- NOTE | 2019-12-18 14:14 | NUR ---
GOT BED 120
--- NOTE | 2019-12-18 14:53 | NUR ---
REPORT GIVEN TO SALOME MANE OF TELE UNIT
--- NOTE | 2019-12-18 14:55 | NUR ---
RECEIVED REPORT FROM ABRAHAN
[2019-12-18 15:10] VITALS: BP 139/76
--- NOTE | 2019-12-18 15:10 | NUR ---
RN OPENING NOTE Received patient awake from ER accompanied by 2 staff physician. Alert Oriented X4 Pap[place] Guinean speaking able to communicate. On NC 4L o2 sat was 88% increased to NC 5L o2 sat went up to 92% will cont to monitor. Vital signs as follows BP 139/76 HR 87 RR 22 TEMP 98.4F. noted with R hand #20 flushes well. R Chest wall port a cath dressing intact. Safety measures implemented. Call light within reach. Will cont to monitor.
--- NOTE | 2019-12-18 15:30 | NUR ---
PATIENT NOTICED O2 SAT WAS 88-90% ON NC 5L ASYMPTOMATIC NO SIGNS OF DISTRESS. PLACED ON SIMPLE MASK 10L O2 SAT WENT UP TO 98% WILL CONT TO MONITOR. Addendum: 12/18/19 at 1627 by SALOME WEBB RN INFORMED PRISCILA WAITING FOR RESPONSE.
--- NOTE | 2019-12-18 15:50 | NUR ---
RECEIVED CALL FROM [facility] TO INQUIRE ABOUT REASON FOR ADMISSION. INFORMED ANEMIA AND WEAKNESS.
[2019-12-18 16:00] VITALS: BP 135/65
--- NOTE | 2019-12-18 16:27 | NUR ---
PER PRISCILA, ORDERED ATB IV FOR PNEUMONIA.
[2019-12-18] MEDS: APIXABAN 2.5 MG TABLET PO SCH (16:29)
[2019-12-18] MEDS: CEFTRIAXONE 1 G in IV D5W 50 ML IV SCH (16:32)
[2019-12-18] MEDS: AZITHROMYCIN 500 MG in IV D5W 250 ML IV SCH (17:37)
[2019-12-18] MEDS: BLOOD SUGAR DIAGNOSTIC 1 EACH STRIP IN SCH ×2 (17:38→22:06)
[2019-12-18] MEDS: AMLODIPINE BESYLATE 10 MG TABLET PO SCH (17:39)
[2019-12-18] MEDS: SEVELAMER CARBONATE 800 MG TABLET PO SCH (17:40)
--- NOTE | 2019-12-18 18:45 | NUR ---
PATIENT COMPLAINED OF ON SIMPLE MASK. CHANGED TO NC 6L ON HUMIDIFIER. TOLERATING WELL. O2 SAT 91-96%. SAFETY MEASURES MAINTAINED. ASSISTED WITH HYGIENE. ALL DUE MEDS GIVEN. VITAL SIGNS MAINTAINED WITHIN NORMAL LIMITS. WILL ENDORSE TO ORGANIC SECTION TECHNICAL LEAD NURSE FOR SUNSHINE.
--- NOTE | 2019-12-18 19:55 | NUR ---
RN NOTE RECEIVED PT IN BED A/A/O X4. PT ON 6 L VIA NC SATING 90 %TO 91%. SWITCHED TO FACE MASK ON 10 L SATING 98% TO 99%. PT HAS UNLABORED BREATHING. PT IS ON TELE MONITOR SHOWING SR HR IN 70'S. PT HAS R HAND 20 G S/L AND R CHEST WALL PORT A CATH. SAFETY MEASURES IN PLACE HOB ELEVATED, SIDE RAILS UP X2. BED AT LOWST POSITION AND LOCKED.
[2019-12-18 20:00] VITALS: BP 144/64
[2019-12-18] MEDS: INSULIN REGULAR, HUMAN 100 UNIT/ML 3 ML VIAL SQ PRN (21:55)
[2019-12-18] MEDS: GABAPENTIN 100 MG CAPSULE PO SCH (21:56)
[2019-12-19] VITALS (12 sets, daily range): BP systolic 126–152; BP diastolic 62–84
--- NOTE | 2019-12-19 02:58 | NUR ---
ALHAJI NOTE ICU HEAD SOFT SUGAR OPERATOR INFORMED PT LAKHWINDER TURNED TO CONTROLLED AFIB IN 80s. Addendum: 12/19/19 at 0301 by BRAD MERCADO RN RHYTHM CHANGED ACTUAL TIME WAS 0245.
[2019-12-19 06:30] LABS: BASOPHILS # (AUTO) 0.1 /CMM (0.0-0.2); BASOPHILS % (AUTO) 0.7 % (0.0-2.0); EOSINOPHILS % (AUTO) 0.7 % (0.0-6.0); LYMPHOCYTES % (AUTO) 25.4 % (20.0-44.0); MEAN CORPUSCULAR HGB CONC 34 g/dl (31.0-36.0); MEAN CORPUSCULAR VOLUME 96 fL (82-100); MONOCYTES # (AUTO) 0.9 /CMM (0.1-1.30); MONOCYTES % (AUTO) 11.5 % (2.0-12.0); NEUTROPHILS # (AUTO) 4.8 /CMM (1.8-8.9); NEUTROPHILS % (AUTO) 61.7 % (43.0-81.0); PLATELET COUNT (AUTO) 203 /CMM (150-450); WHITE BLOOD COUNT (AUTO) 7.7 K/uL (4.3-11.0)
[2019-12-19 06:52] LABS: ALANINE AMINOTRANSFERASE 14 U/L (12-78); ALBUMIN 2.9 g/dL (3.4-5.0); ALKALINE PHOSPHATASE 109 U/L (46-116); ASPARTATE AMINOTRANSFERASE 18 U/L (15-37); BILIRUBIN,TOTAL 1.2 mg/dL (0.2-1.0); CALCIUM, SERUM 8.7 mg/dL (8.5-10.1); CARBON DIOXIDE 35 mmol/L (21-32); CHLORIDE 99 mmol/L (98-107); CHOLESTEROL 60 mg/dL (<200); CREATININE 3.7 mg/dL (0.6-1.3); GLUCOSE 72 mg/dL (74-106); HDL CHOLESTEROL 36 mg/dL (40-60); LDL 20 mg/dL (0-99); MAGNESIUM 2.1 mg/dL (1.8-2.4); PHOSPHORUS 3.1 mg/dL (2.5-4.9); SODIUM SERUM 140 mmol/L (136-145); THYROID STIMULATING HORMONE 3.226 uIU/mL (0.358-3.74); TOTAL PROTEIN, SERUM 7.3 g/dL (6.4-8.2); TRIGLYCERIDES 55 mg/dL (30-150); UREA NITROGEN, BLOOD 20 mg/dL (7-18)
[2019-12-19 07:06] LABS: HEMATOCRIT 19 % (33-45); HEMOGLOBIN 6.5 g/dL (11.5-14.8)
--- NOTE | 2019-12-19 07:21 | NUR ---
RN NOTE PT REMAINED STABLE DURING MY SHIFT. PT ON 10 L VIA SIMPLE MASK SATING 100%. REPORT GIVEN TO INCOMING SHIFT FOR SUNSHINE.
[2019-12-19 07:26] LABS: IRON, SERUM 43 ug/dl (50-175); TOTAL IRON BINDING CAPACITY 215 ug/dl (250-450)
--- NOTE | 2019-12-19 07:30 | NUR ---
PARLIAMENTARY ARCHIVIST OPENING NOTES Alert Oriented X4, resting comfortably. Not in any acute distress. On O2 via NC at 5 LPM with O2 sat at 96%. Tele monitor reads NSR with HR in 70s. Noted with R hand #20 flushes well. R Chest wall port a cath dressing intact. Safety measures implemented. Call light within reach. Will continue to monitor.
--- NOTE | 2019-12-19 07:54 | NUR ---
INFORMED CONSENT FROM VIVIENNE CARTY DAUGHTER FOR BLOOD TRANSFUSION WITNESSED BY MONO MANE
[2019-12-19] MEDS: BLOOD SUGAR DIAGNOSTIC 1 EACH STRIP IN SCH ×4 (08:10→21:33)
[2019-12-19] MEDS: SEVELAMER CARBONATE 800 MG TABLET PO SCH ×3 (08:13→17:08)
[2019-12-19] MEDS: LEVOTHYROXINE SODIUM 75 MCG TABLET PO SCH (08:13)
--- NOTE | 2019-12-19 08:15 | NUR ---
REUBEN Jones made aware of Hemoglobin level results 6.5 and Hematocrit level result of 19, with orders to transfuse 1 pack of RBC.
[2019-12-19] MEDS: CHOLECALCIFEROL 1,000 UNIT TABLET (VIT D3) PO SCH (08:19)
[2019-12-19] MEDS: LISINOPRIL (10MG) 10 MG TABLET PO SCH (08:19)
[2019-12-19] MEDS: ATORVASTATIN 10 MG TABLET PO SCH (08:19)
[2019-12-19] MEDS: METOPROLOL SUCCINATE 25 MG TAB.SR.24H PO SCH (08:20)
[2019-12-19] MEDS: APIXABAN 2.5 MG TABLET PO SCH (08:24)
[2019-12-19] MEDS ORDERED: VANCOMYCIN 1 GM in IV D5W 250 ML IV ONE (09:00)
[2019-12-19] MEDS ORDERED: VANCOMYCIN 500 MG in IV D5W 100 ML IV PRN (09:00)
--- NOTE | 2019-12-19 09:52 | NUR ---
WOUND CARE CONSULT: PT PRESENTS CONTINENT AND INDEPENDENT WITH BED MOBILITY. SOME REDNESS NOTED TO ABDOMINAL FOLDS, PRESENT ON ADMISSION. RECOMMENDATIONS MADE FOR SKIN PROTECTION. DISCUSSED WITH NURSING STAFF. WILL SEE PRN. PANIAGUA IN AGREEMENT WITH PLAN OF CARE. Addendum: 12/19/19 at 0953 by AYDEE DOMÍNGUEZ WNDNU Amended: Links added.
[2019-12-19 10:24] LABS: LYMPHOCYTES % (MANUAL) 25 % (16-48); MONOCYTES % (MANUAL) 12 % (0-11.0); NEUTROPHILS % (MANUAL) 63 (42-76)
[2019-12-19] MEDS: ACETAMINOPHEN 325 MG TABLET PO PRN (10:40)
[2019-12-19] MEDS: INSULIN REGULAR, HUMAN 100 UNIT/ML 3 ML VIAL SQ PRN ×3 (12:26→22:16)
[2019-12-19] MEDS: IPRATROPIUM NEB FS 0.5 MG/2.5 ML AMPUL.NEB NEB SCH ×4 (12:30→23:15)
[2019-12-19] MEDS: AZITHROMYCIN 500 MG in IV D5W 250 ML IV SCH (16:54)
[2019-12-19] MEDS: CEFTRIAXONE 1 G in IV D5W 50 ML IV SCH (16:55)
[2019-12-19] MEDS: CLOTRIMAZOLE 1% 15 GM TUBE TP SCH (16:56)
[2019-12-19] MEDS: AMLODIPINE BESYLATE 10 MG TABLET PO SCH (17:07)
--- NOTE | 2019-12-19 19:30 | NUR ---
PICKER/PULLER CLOSING NOTES PT REMAINS ALERT AND ORIENTED X4. NOT IN ANY ACUTE DISTRESS. ON 02 AT 5 LPM, WITH O2 SAT AT 94%. TELE MONITOR READS NSR WITH HR IN THE 80S. RIGHT HAND IV#20, AND LEFT FOREARM IV #20 INTACT AND FLUSHED. ALL DUE MEDICATIONS GIVEN. SAFETY PRECAUTIONS OBSERVED AT ALL TIMES. CALL LIGHT LEFT WITHIN REACH FOR EASY ACCESS. WILL ENDORSE TO NEXT SHIFT FOR SUNSHINE. PT TRANSFERRED TO ROOM 324 FOR SUNSHINE.
--- NOTE | 2019-12-19 19:39 | NUR ---
RN OPENING NOTES RECEIVED PT IN BED. RECEIVING DIALYSIS WITH NURSE AT BED SIDE. A/O X4. INDONESIAN PREFERRED, UNDERSTANDS VIETNAMESE. FULL CODE NOTED. ON 5L OF O2 SATURATING AT 95%. BREATHING IS EVEN AND UNLABORED AT THIS TIME. NO S/S OF RESPIRATORY DISTRESS. PT ON RENAL DIET. PT IS ABLE INDEPENDENT TO SELF. IV SITES FLUSHED. BED IS LOCKED IN LOWEST POSITION WITH BED ALARM ON. CALL LIGHT WITHIN REACH. WILL CONTINUE TO MONITOR.
--- NOTE | 2019-12-19 20:20 | NUR ---
2000ML OUT FROM HD REPORTED FROM DIALYSIS NURSE. PT IS STABLE AT THIS TIME. SATURATION AT 97%. PT DENIES PAIN. WILL CONTINUE TO MONITOR.
[2019-12-19] MEDS: GABAPENTIN 100 MG CAPSULE PO SCH (21:34)
--- NOTE | 2019-12-19 23:35 | NUR ---
PT IS SLEEPING. STILL ON O2 SATURATING AT 98%. ON TELE MONITORING, READING AT NSR HR OF 72 AT THIS TIME. WILL CONTINUE TO MONITOR.
[2019-12-20] VITALS (7 sets, daily range): BP systolic 128–153; BP diastolic 66–81
--- NOTE | 2019-12-20 02:17 | NUR ---
PERFORMED WOUND TX FOR ABDOMINAL FOLD ORDERED, WILL CONTINUE TO MONITOR.
[2019-12-20] MEDS: IPRATROPIUM NEB FS 0.5 MG/2.5 ML AMPUL.NEB NEB SCH ×6 (03:20→23:53)
--- NOTE | 2019-12-20 06:40 | NUR ---
RN CLOSING NOTES. PT IS RESTING IN BED. STILL ON TELE MONITOR AND CONT O2 SAT. CURRENTLY NSR WITH A HR OF 65 AND O2 SAT OF 98. TOLERATING 5L OF O2 VIA NC. PT SLEPT WELL THROUGHOUT THE NIGHT. NEEDS ATTENDED. IV SITES FLUSHED. NO SIGNIFICANT CHANGES. PT IS COOPERATIVE WITH CARE. LINENS CHANGED, PT IS MOTIVATED TO SELF CARE. BED IS LOCKED IN LOWEST POSITION. BED ALARM ON. WILL ENDORSE TO ONCOMING NURSE FOR CONTINUATION OF CARE.
[2019-12-20 06:57] LABS: CALCIUM, SERUM 9.1 mg/dL (8.5-10.1); CARBON DIOXIDE 27 mmol/L (21-32); CHLORIDE 101 mmol/L (98-107); CREATININE 3.6 mg/dL (0.6-1.3); GLUCOSE 121 mg/dL (74-106); MAGNESIUM 2.2 mg/dL (1.8-2.4); PHOSPHORUS 3.1 mg/dL (2.5-4.9); POTASSIUM 4.1 mmol/L (3.5-5.1); SODIUM SERUM 139 mmol/L (136-145); UREA NITROGEN, BLOOD 20 mg/dL (7-18)
[2019-12-20 07:06] LABS: BASOPHILS % (AUTO) 0.7 % (0.0-2.0); EOSINOPHILS % (AUTO) 1.5 % (0.0-6.0); HEMATOCRIT 23 % (33-45); HEMOGLOBIN 7.9 g/dL (11.5-14.8); LYMPHOCYTES # (AUTO) 1.2 /CMM (0.8-4.8); LYMPHOCYTES % (AUTO) 19.4 % (20.0-44.0); MEAN CORPUSCULAR HGB CONC 34 g/dl (31.0-36.0); MEAN CORPUSCULAR VOLUME 96 fL (82-100); MONOCYTES # (AUTO) 0.7 /CMM (0.1-1.30); MONOCYTES % (AUTO) 11.5 % (2.0-12.0); NEUTROPHILS # (AUTO) 4.3 /CMM (1.8-8.9); NEUTROPHILS % (AUTO) 66.9 % (43.0-81.0); PLATELET COUNT (AUTO) 208 /CMM (150-450); RED BLOOD CELL COUNT(AUTO) 2.43 MIL/uL (4.0-5.2); WHITE BLOOD COUNT (AUTO) 6.4 K/uL (4.3-11.0)
--- NOTE | 2019-12-20 07:30 | NUR ---
Opening Notes: Report received from night RN. Patient alert, awake, and oriented x 4. Patient able to make needs known. No s/s of distress or discomfort noted. No c/o pain. Kept clean and dry. Assisted with ADLs. Patient received morning due medications as ordered, patient compliant. No SOB noted. Fall precautions observed. Call light within reach.
--- NOTE | 2019-12-20 09:00 | NUR ---
Telemetry was discontinued as ordered. VS WNL, no s/s of distress or discomfort noted.
[2019-12-20] MEDS: BLOOD SUGAR DIAGNOSTIC 1 EACH STRIP IN SCH ×4 (09:05→21:09)
[2019-12-20] MEDS: INSULIN REGULAR, HUMAN 100 UNIT/ML 3 ML VIAL SQ PRN ×4 (09:53→22:32)
[2019-12-20] MEDS: LEVOTHYROXINE SODIUM 75 MCG TABLET PO SCH (10:32)
[2019-12-20] MEDS: ATORVASTATIN 10 MG TABLET PO SCH (10:34)
[2019-12-20] MEDS: LISINOPRIL (10MG) 10 MG TABLET PO SCH (10:35)
[2019-12-20] MEDS: METOPROLOL SUCCINATE 25 MG TAB.SR.24H PO SCH (10:35)
[2019-12-20] MEDS: CHOLECALCIFEROL 1,000 UNIT TABLET (VIT D3) PO SCH (10:36)
[2019-12-20] MEDS: SEVELAMER CARBONATE 800 MG TABLET PO SCH ×3 (10:52→17:46)
[2019-12-20] MEDS: CLOTRIMAZOLE 1% 15 GM TUBE TP SCH ×2 (13:55→16:57)
[2019-12-20] MEDS ORDERED: EPOETIN ALFA (20,000 UNIT) 20,000 UNIT/ML VIAL SQ ONE (14:00)
[2019-12-20] MEDS ORDERED: VANCOMYCIN 1 GM in IV D5W 250 ML IV ONE (14:00)
[2019-12-20] MEDS ORDERED: VANCOMYCIN 500 MG in IV D5W 100 ML IV ONE (14:00)
[2019-12-20] MEDS: CEFTRIAXONE 1 G in IV D5W 50 ML IV SCH (16:39)
[2019-12-20] MEDS: AMLODIPINE BESYLATE 10 MG TABLET PO SCH (17:46)
--- NOTE | 2019-12-20 18:12 | NUR ---
Closing Notes: Patient alert, awake and oriented x4. Patient able to make needs known. no c/o pain. Patient able to reposition herself. Assisted with ADLs. Linens changed, kept clean and dry. CRYOGENIC TRANSPORT DRIVER with new orders for VTE, noted and carried out. Due medications given, no ASE noted. Needs anticipated and attended. Fall precautions observed. Call light within reach. VS WNL.
--- NOTE | 2019-12-20 19:30 | NUR ---
RN NOTE RECEIVED PATIENT IN BED, AO X4, IN NO S/SX OF ACUTE DISTRESS AT THIS TIME. PATIENT'S BREATHING IS EVEN AND UNLABORED. PATIENT IS ON 5 L OF OXYGEN VIA NC, TOLERATED WELL, SATURATING AT 96%, HR IS 67. NOTED IV SITE LFA G20, PATENT AND FLUSHING WELL, NO S/S OF INFECTION OR INFILTRATION, WITH NS INFUSING AT 100 ML/HR. NOTED PORTACATH AT RCW, NO SIGN OF INFECTION NOTED. SAFETY MEASURES IMPLEMENTED PER PROTOCOL. PATIENT BED ALARM IS ON. HEAD OF BED ELEVATED. BED IS LOCKED, IN LOWEST POSITION AND SIDE RAILS UP. CALL LIGHT WITHIN REACH OF THE PATIENT. WILL CONTINUE TO MONITOR AND REASSESS FOR ANY CHANGES. Addendum: 12/21/19 at 0029 by RAJWINDER WOOD RN ERRATUM: NO IV FLUID INFUSING. PLEASE DISREGARD
--- NOTE | 2019-12-20 21:00 | NUR ---
RN NOTE NOTED PATIENT COUGHING AND PANTING, CURRENTLY AT 5L OXYGEN VIA NC, SATURATION AT 70'S. RT WAS NOTIFIED. NC WAS CHANGED TO OXYGEN MASK INCREASED TO 10LPM. TITRATED OXYGEN GRADUALLY TO 6LPM. INSTRUCTED PATIENT TO PERFORM DEEP BREATHING. PATIENT STATED SHE FEELS BETTER NOW. WILL CONTINUE TO MONITOR FOR CHANGES. LATEST SATURATION 96%
[2019-12-20] MEDS: GABAPENTIN 100 MG CAPSULE PO SCH (21:09)
[2019-12-20] MEDS: HEPARIN SODIUM, PORCINE 5000 UNITS/1 ML VIAL SQ SCH (22:30)
[2019-12-21] MEDS: IPRATROPIUM NEB FS 0.5 MG/2.5 ML AMPUL.NEB NEB SCH ×5 (05:02→20:27)
--- NOTE | 2019-12-21 05:03 | NUR ---
MED GIVEN LATE DUE TO RT RESPONDING TO RAPID RESPONSE Addendum: 12/21/19 at 0504 by JENNIE MUNSON RT Amended: Links added.
[2019-12-21 06:28] LABS: BASOPHILS % (AUTO) 0.5 % (0.0-2.0); EOSINOPHILS % (AUTO) 1.4 % (0.0-6.0); HEMATOCRIT 22 % (33-45); HEMOGLOBIN 7.6 g/dL (11.5-14.8); LYMPHOCYTES # (AUTO) 1.1 /CMM (0.8-4.8); LYMPHOCYTES % (AUTO) 12.8 % (20.0-44.0); MEAN CORPUSCULAR HGB CONC 34 g/dl (31.0-36.0); MEAN CORPUSCULAR VOLUME 95 fL (82-100); MONOCYTES # (AUTO) 0.9 /CMM (0.1-1.30); MONOCYTES % (AUTO) 11.1 % (2.0-12.0); NEUTROPHILS # (AUTO) 6.3 /CMM (1.8-8.9); NEUTROPHILS % (AUTO) 74.2 % (43.0-81.0); PLATELET COUNT (AUTO) 188 /CMM (150-450); RED BLOOD CELL COUNT(AUTO) 2.36 MIL/uL (4.0-5.2); WHITE BLOOD COUNT (AUTO) 8.4 K/uL (4.3-11.0)
[2019-12-21] MEDS: LEVOTHYROXINE SODIUM 75 MCG TABLET PO SCH (06:42)
[2019-12-21 06:56] LABS: CALCIUM, SERUM 8.8 mg/dL (8.5-10.1); CARBON DIOXIDE 27 mmol/L (21-32); CHLORIDE 97 mmol/L (98-107); CREATININE 5.2 mg/dL (0.6-1.3); GLUCOSE 159 mg/dL (74-106); MAGNESIUM 2.2 mg/dL (1.8-2.4); PHOSPHORUS 3.5 mg/dL (2.5-4.9); POTASSIUM 4.8 mmol/L (3.5-5.1); SODIUM SERUM 134 mmol/L (136-145); UREA NITROGEN, BLOOD 36 mg/dL (7-18)
--- NOTE | 2019-12-21 07:05 | NUR ---
MS RN OPENING NOTES RECEIVED PT AWAKE IN BED AT THIS TIME. AOX4.PT ABLE TO VERBALIZE NEEDS. NO SOB NOTED, NO S/S OF ANY ACUTE DISTRESS NOTED. NO C/O PAIN AT THIS TIME. RESPIRATIONS ARE EVEN AND UNLABORED WITH EQUAL RISE AND FALL IN CHEST.PT ON O2 @5LPM VIA NC. IV ACCESS NOTED IN LFA G#20, INTACT, PATENT AND FLUSHING WELL. PT NOTED WITH RCW ELINA-CATH FOR HD. ASPIRATION AND SAFETY PRECAUTION IN PLACE AND MAINTAINED AT ALL TIMES. BED IN LOWEST LOCKED POSITION, HOB ELEVATED, SIDE RAILS UP X 2, CALL LIGHT WITHIN REACH. WILL CONTINUE TO MONITOR
[2019-12-21] MEDS: BLOOD SUGAR DIAGNOSTIC 1 EACH STRIP IN SCH ×4 (07:09→21:39)
[2019-12-21] MEDS: INSULIN REGULAR, HUMAN 100 UNIT/ML 3 ML VIAL SQ PRN ×3 (07:23→17:01)
[2019-12-21] MEDS: SEVELAMER CARBONATE 800 MG TABLET PO SCH ×3 (07:59→17:12)
[2019-12-21 08:00] VITALS: BP 125/73
[2019-12-21] MEDS ORDERED: ALBUTEROL FS 2.5 MG/3 ML VIAL.NEB NEB PRN (09:00)
[2019-12-21] MEDS ORDERED: IPRATROPIUM NEB FS 0.5 MG/2.5 ML AMPUL.NEB NEB PRN (09:00)
--- NOTE | 2019-12-21 09:08 | NUR ---
pt. placed into simple mask @ 6 lpm O2 flow due to 87 spo2 on nasal cannula. spo2 95 -96% on 6 liter simple mask Addendum: 12/21/19 at 0909 by FRANCOIS BURTON RT Amended: Links added.
[2019-12-21] MEDS: HEPARIN SODIUM, PORCINE 5000 UNITS/1 ML VIAL SQ SCH ×2 (09:12→21:39)
[2019-12-21] MEDS: ATORVASTATIN 10 MG TABLET PO SCH (09:16)
[2019-12-21] MEDS: CHOLECALCIFEROL 1,000 UNIT TABLET (VIT D3) PO SCH (09:16)
[2019-12-21] MEDS: METOPROLOL SUCCINATE 25 MG TAB.SR.24H PO SCH (09:17)
[2019-12-21] MEDS: CLOTRIMAZOLE 1% 15 GM TUBE TP SCH ×2 (09:17→16:52)
[2019-12-21] MEDS: LISINOPRIL (10MG) 10 MG TABLET PO SCH (09:17)
[2019-12-21 10:10] VITALS: BP 125/73
--- NOTE | 2019-12-21 13:00 | NUR ---
PT ON NPO STATUS PER DR FLORES FOR SPEECH EVAL TO R/O ASPIRATION. NURSINF INITIAL EVAL DONE AT BEDSIDE WITH HOB IN HIGH FOWLERS POSITION, PT NOTED CHOKING ON FOOD. CELIA,CHARGE NURSE MADE AWARE. PER CELIA, CHARGE NURSE KEEP PT NPO. WILL CONTINUE TO MONITOR
[2019-12-21 16:00] VITALS: BP 133/62
[2019-12-21] MEDS: CEFTRIAXONE 1 G in IV D5W 50 ML IV SCH (16:52)
[2019-12-21] MEDS: AMLODIPINE BESYLATE 10 MG TABLET PO SCH (17:12)
[2019-12-21] MEDS: VANCOMYCIN 500 MG in IV D5W 100 ML IV PRN (18:19)
--- NOTE | 2019-12-21 19:01 | NUR ---
MS RN CLOSING NOTES PT AWAKE IN BED AT THIS. PT REMAINED STABLE THROUGHOUT SHIFT. PT KEPT CLEAN AND DRY. ALL CARE, NEEDS, MEDICATIONS AND TREATMENT ADMINISTERED ANTICIPATED PER ORDER. ASPIRATION AND SAFETY PRECAUTION IN PLACE AND MAINTAINED AT ALL TIMES. BED IN LOWEST LOCKED POSITION, HOB ELEVATED, SIDE RAILS UP X 2, CALL LIGHT WITHIN REACH. WILL ENDORSE TO SUPPLY CHAIN ENGINEER NURSE FOR SUNSHINE
--- NOTE | 2019-12-21 19:15 | NUR ---
RN OPENING NOTES Received patient A/O x4, awake, resting on bed. On O2 via mask @ 6LPM, saturating well, no respiratory distress noted at this time. For stool collection, instructed patient to notify RN if she will have a bowel movement, patient verbalized understanding. Kept on bed clean, dry and comfortable. Call light within easy reach. Will continue to monitor accordingly.
[2019-12-21 20:31] VITALS: BP 147/68
[2019-12-21] MEDS: GABAPENTIN 100 MG CAPSULE PO SCH (21:38)
--- NOTE | 2019-12-21 21:50 | NUR ---
RN NOTES Pt put on O2 via NC @ 6LPM, SpO2 97%, desats with talking and eating. Will continue to monitor accordingly.
[2019-12-21 22:00] VITALS: BP 147/68
[2019-12-22] MEDS: IPRATROPIUM NEB FS 0.5 MG/2.5 ML AMPUL.NEB NEB SCH ×7 (00:01→23:45)
--- NOTE | 2019-12-22 02:00 | NUR ---
RN NOTES Pt put back on mask @ 10LPM to keep SpO2 > 90%.
[2019-12-22 03:04] LABS: OCCULT BLOOD STOOL NEGATIVE (NEGATIVE)
[2019-12-22] MEDS: BLOOD SUGAR DIAGNOSTIC 1 EACH STRIP IN SCH ×4 (06:35→21:28)
--- NOTE | 2019-12-22 06:44 | NUR ---
RN CLOSING NOTES Pt asleep, on mask @ 10LPM, saturating well. All nursing needs attended. Kept on NPO, awaiting for swallow eval. Kept on bed clean, dry and comfortable. Call light within easy reach. Endorsed.
[2019-12-22] MEDS: LEVOTHYROXINE SODIUM 75 MCG TABLET PO SCH (07:30)
[2019-12-22 07:38] LABS: BASOPHILS % (AUTO) 0.4 % (0.0-2.0); EOSINOPHILS % (AUTO) 1.2 % (0.0-6.0); HEMATOCRIT 23 % (33-45); HEMOGLOBIN 7.9 g/dL (11.5-14.8); LYMPHOCYTES % (AUTO) 12.3 % (20.0-44.0); MEAN CORPUSCULAR HGB CONC 34 g/dl (31.0-36.0); MEAN CORPUSCULAR VOLUME 97 fL (82-100); MONOCYTES # (AUTO) 0.8 /CMM (0.1-1.30); NEUTROPHILS # (AUTO) 5.9 /CMM (1.8-8.9); NEUTROPHILS % (AUTO) 76.1 % (43.0-81.0); PLATELET COUNT (AUTO) 193 /CMM (150-450); WHITE BLOOD COUNT (AUTO) 7.8 K/uL (4.3-11.0)
--- NOTE | 2019-12-22 07:50 | NUR ---
RN NOTE THE PATIENT IS RECEIVED IN BED. THE PATIENT IS ON OXYGEN AT 10L/MIN VIA SIMPLE MASK AND SATURATION IS AT 93%. DENIES SOB. RESPIRATION REGULAR AND UNLABORED. DENIES PAIN. LFA G 20 PATENT AND SALINE LOCKED. RIGHT CHEST WALL HD CATH PRESENT. BED LOW AND LOCKED. SIDE RAILS UP X3. CALL LIGHT WITHIN REACH. WILL CONTINUE TO MONITOR.
[2019-12-22 08:00] VITALS: BP 135/77
[2019-12-22] MEDS: SEVELAMER CARBONATE 800 MG TABLET PO SCH ×3 (08:00→17:04)
[2019-12-22 08:02] LABS: CALCIUM, SERUM 8.9 mg/dL (8.5-10.1); CARBON DIOXIDE 26 mmol/L (21-32); CHLORIDE 98 mmol/L (98-107); CREATININE 4.3 mg/dL (0.6-1.3); GLUCOSE 193 mg/dL (74-106); MAGNESIUM 2.4 mg/dL (1.8-2.4); PHOSPHORUS 3.6 mg/dL (2.5-4.9); POTASSIUM 4.1 mmol/L (3.5-5.1); SODIUM SERUM 135 mmol/L (136-145); UREA NITROGEN, BLOOD 28 mg/dL (7-18)
[2019-12-22] MEDS: ATORVASTATIN 10 MG TABLET PO SCH (08:50)
[2019-12-22] MEDS: LISINOPRIL (10MG) 10 MG TABLET PO SCH (08:51)
[2019-12-22] MEDS: CHOLECALCIFEROL 1,000 UNIT TABLET (VIT D3) PO SCH (08:51)
[2019-12-22] MEDS: METOPROLOL SUCCINATE 25 MG TAB.SR.24H PO SCH (08:51)
[2019-12-22] MEDS: CLOTRIMAZOLE 1% 15 GM TUBE TP SCH ×2 (10:40→16:46)
[2019-12-22] MEDS: HEPARIN SODIUM, PORCINE 5000 UNITS/1 ML VIAL SQ SCH ×2 (10:42→21:03)
[2019-12-22] MEDS: INSULIN REGULAR, HUMAN 100 UNIT/ML 3 ML VIAL SQ PRN ×3 (12:09→21:30)
[2019-12-22 16:00] VITALS: BP 145/87
[2019-12-22] MEDS: CEFTRIAXONE 1 G in IV D5W 50 ML IV SCH (16:46)
[2019-12-22] MEDS: AMLODIPINE BESYLATE 10 MG TABLET PO SCH (17:04)
--- NOTE | 2019-12-22 18:15 | NUR ---
RN NOTE THE PATIENT IS ALERT AND ORIENTED X4. DENIES PAIN. RECEIVING OXYGEN AT 10 L/MIN VIA SIMPLE MASK AND SATURATION IS AT 94%. DENIES SOB. RESPIRATION REGULAR AND UNLABORED. PATIENT DESATURATES TO LOW 80S SOON THE MASK ID REMOVED. THE PATIENT IS COMPLIANT WITH KEEPING THE MASK ON. DENIES PAIN. LEFT HADN G 22 PATENT AND SALINE LOCKED. RIGHT CHEST WALL HD CATH PRESENT. BED LOW AND DANNY.D SIDE RAILS UP X3. CALL LIGHT WITHIN REACH. WILL ENDORSE TO WOODS LABORER.
--- NOTE | 2019-12-22 19:45 | NUR ---
MS RN OPENING NOTES RECEIVED PATIENT IN BED ALERT AND ORIENTED X 4. VERBALLY RESPONSIVE AND ABLE TO FOLLOW DIRECTIONS. BREATHING REGULAR AND UNLABORED ON OXYGEN AT 10L/MIN VIA FACE MASK, LATEST SPO2 95%. LEFT HAND G22 IV LINE INTACT AND PATENT, FLUSHING WELL WITH NO BLEEDING OR S/S OF INFILTRATION NOTED. RIGHT CHEST PERMACATH INTACT WITH NO ACTIVE BLEEDING SEEN, DRESSING CLEAN AND DRY. DENIES SUICIDAL IDEATION OR PAIN/DISCOMFORT AT THIS TIME. BED LOW AND LOCKED ON SEMI FOWLERS POSITION. CALL LIGHT IN REACH. WILL CONTINUE TO MONITOR.
[2019-12-22 20:00] VITALS: BP 132/63
[2019-12-22] MEDS: GABAPENTIN 100 MG CAPSULE PO SCH (21:01)
--- NOTE | 2019-12-22 22:00 | NUR ---
MS RN NOTES BS 187mg/dl, 3UNITS REGULAR INSULIN GIVEN SQ. SNACKS PROVIDED ON BEDSIDE. WILL CONTINUE TO MONITOR.
--- NOTE | 2019-12-23 | NUR ---
RT Pt on 10L O2 via simple mask. Pt is asleep but arousable and will answer questions. Saturation is between 93-98%.
[2019-12-23] MEDS: IPRATROPIUM NEB FS 0.5 MG/2.5 ML AMPUL.NEB NEB SCH ×5 (03:28→19:34)
[2019-12-23] MEDS: LEVOTHYROXINE SODIUM 75 MCG TABLET PO SCH (06:33)
[2019-12-23] MEDS: BLOOD SUGAR DIAGNOSTIC 1 EACH STRIP IN SCH ×4 (06:33→21:23)
[2019-12-23] MEDS: INSULIN REGULAR, HUMAN 100 UNIT/ML 3 ML VIAL SQ PRN ×4 (06:33→21:24)
--- NOTE | 2019-12-23 06:45 | NUR ---
MS RN CLOSING NOTES PATIENT IN BED ALERT AND ORIENTED X 4. AFEBRILE WITH NO S/S OF DISTRESS OBSERVED, LATEST SPO2 97%. LEFT HAND G22 IV LINE PATENT AND FLUSHING WELL. NO COMPLAINTS OF PAIN/DISCOMFORT AT THIS TIME. BED LOW AND LOCKED ON SEMI FOWLERS POSITION. CALL LIGHT IN REACH. WILL ENDORSE TO MORNING SHIFT FOR SUNSHINE.
[2019-12-23 06:53] LABS: BASOPHILS % (AUTO) 0.3 % (0.0-2.0); EOSINOPHILS % (AUTO) 1.5 % (0.0-6.0); HEMATOCRIT 22 % (33-45); HEMOGLOBIN 7.2 g/dL (11.5-14.8); LYMPHOCYTES % (AUTO) 13.1 % (20.0-44.0); MEAN CORPUSCULAR HGB CONC 34 g/dl (31.0-36.0); MEAN CORPUSCULAR VOLUME 96 fL (82-100); MONOCYTES # (AUTO) 0.7 /CMM (0.1-1.30); MONOCYTES % (AUTO) 9.9 % (2.0-12.0); NEUTROPHILS # (AUTO) 5.7 /CMM (1.8-8.9); NEUTROPHILS % (AUTO) 75.2 % (43.0-81.0); PLATELET COUNT (AUTO) 186 /CMM (150-450); RED BLOOD CELL COUNT(AUTO) 2.24 MIL/uL (4.0-5.2); WHITE BLOOD COUNT (AUTO) 7.6 K/uL (4.3-11.0)
[2019-12-23 07:34] LABS: CARBON DIOXIDE 26 mmol/L (21-32); CHLORIDE 99 mmol/L (98-107); CREATININE 5.7 mg/dL (0.6-1.3); GLUCOSE 134 mg/dL (74-106); MAGNESIUM 2.3 mg/dL (1.8-2.4); POTASSIUM 4.4 mmol/L (3.5-5.1); SODIUM SERUM 134 mmol/L (136-145)
--- NOTE | 2019-12-23 07:45 | NUR ---
RN OPENING NOTE Patient is resting in bed, A/O x4, showing no signs of acute distress, o2 sat is 100% on 10L simple face mask. IV line in the left hand #22g is clean and intact, flushing well. Right chest permacath noted. Patient denies pain at this time. Patient is about to start HD. Vital signs stable. Bed is in lowest position, side rails x3 in upright position, call light is within reach, fall safety and aspiration precautions enforced. Will continue with plan of care.
[2019-12-23 08:00] VITALS: BP 149/67
[2019-12-23 08:04] LABS: UREA NITROGEN, BLOOD 41 mg/dL (7-18)
[2019-12-23] MEDS: HEPARIN SODIUM, PORCINE 5000 UNITS/1 ML VIAL SQ SCH ×2 (09:00→21:00)
[2019-12-23 09:18] VITALS: BP 131/62
--- NOTE | 2019-12-23 09:21 | NUR ---
RN NOTE Patient completed HD 2L out. Vital signs remain stable. Will continue to monitor.
[2019-12-23] MEDS: ATORVASTATIN 10 MG TABLET PO SCH (09:36)
[2019-12-23] MEDS: CHOLECALCIFEROL 1,000 UNIT TABLET (VIT D3) PO SCH (09:36)
[2019-12-23] MEDS: METOPROLOL SUCCINATE 25 MG TAB.SR.24H PO SCH (09:36)
[2019-12-23] MEDS: LISINOPRIL (10MG) 10 MG TABLET PO SCH (09:37)
[2019-12-23] MEDS: CLOTRIMAZOLE 1% 15 GM TUBE TP SCH ×2 (09:38→17:34)
[2019-12-23] MEDS: SEVELAMER CARBONATE 800 MG TABLET PO SCH ×3 (09:40→17:11)
--- NOTE | 2019-12-23 09:48 | NUR ---
RN NOTE Non-admin heparin due to low H&H.
[2019-12-23] MEDS: VANCOMYCIN 500 MG in IV D5W 100 ML IV PRN (12:21)
[2019-12-23] MEDS ORDERED: POLYETHYLENE GLYCOL 3350 17 GM POWD.PACK PO PRN (15:00)
[2019-12-23 16:00] VITALS: BP 123/68
[2019-12-23] MEDS: AMLODIPINE BESYLATE 10 MG TABLET PO SCH (17:16)
[2019-12-23] MEDS: CEFTRIAXONE 1 G in IV D5W 50 ML IV SCH (17:20)
[2019-12-23] MEDS: ACETAMINOPHEN 325 MG TABLET PO PRN (18:18)
--- NOTE | 2019-12-23 18:25 | NUR ---
RN NOTE Patient has temperature of 99.9F. Cooling measures implemented and tylenol given.
--- NOTE | 2019-12-23 18:33 | NUR ---
RN CLOSING NOTE Patient is resting in bed, A/O x4, showing no signs of acute distress, o2 sat is 90-92% on 8-10L simple face mask. IV line in the left hand #22g is clean and intact, flushing well. Right chest permacath noted. S/P HD TODAY WITH 2L OUT. All patient needs met, all due medications given, patient kept clean and dry throughout shift. Bed is in lowest position, side rails x3 in upright position, call light is within reach, fall safety and aspiration precautions enforced. Will endorse to shift mgr for SUNSHINE.
--- NOTE | 2019-12-23 19:45 | NUR ---
MS RN OPENING NOTES RECEIVED PATIENT IN BED ALERT AND ORIENTED X 4. VERBALLY RESPONSIVE AND ABLE TO FOLLOW DIRECTIONS. BREATHING REGULAR AND UNLABORED ON OXYGEN AT 10L/MIN VIA FACE MASK, LATEST SPO2 94%. LEFT HAND G22 IV LINE INTACT AND PATENT, FLUSHING WELL WITH NO BLEEDING OR S/S OF INFILTRATION NOTED. RIGHT CHEST PERMACATH INTACT WITH NO ACTIVE BLEEDING SEEN, DRESSING CLEAN AND DRY. S/P HEMODIALYSIS WITH 2L OUTPUT. DENIES SUICIDAL IDEATION OR PAIN/DISCOMFORT AT THIS TIME. BED LOW AND LOCKED ON SEMI FOWLERS POSITION. CALL LIGHT IN REACH. WILL CONTINUE TO MONITOR.
[2019-12-23 20:00] VITALS: BP 124/69
[2019-12-23 20:43] VITALS: BP 124/69
[2019-12-23] MEDS: GABAPENTIN 100 MG CAPSULE PO SCH (21:23)
--- NOTE | 2019-12-23 22:00 | NUR ---
MS RN NOTES BS 166mg/dl, 3UNITS REGULAR INSULIN GIVEN SQ. SNACKS PROVIDED ON BEDSIDE. WILL CONTINUE TO MONITOR.
[2019-12-24] MEDS: IPRATROPIUM NEB FS 0.5 MG/2.5 ML AMPUL.NEB NEB SCH ×5 (00:23→15:41)
[2019-12-24] MEDS: LEVOTHYROXINE SODIUM 75 MCG TABLET PO SCH (06:31)
[2019-12-24] MEDS: BLOOD SUGAR DIAGNOSTIC 1 EACH STRIP IN SCH ×2 (06:31→12:27)
[2019-12-24] MEDS: INSULIN REGULAR, HUMAN 100 UNIT/ML 3 ML VIAL SQ PRN ×2 (06:31→12:26)
--- NOTE | 2019-12-24 06:40 | NUR ---
MS RN CLOSING NOTES PATIENT IN BED ALERT AND ORIENTED X 4. AFEBRILE WITH NO S/S OF DISTRESS OBSERVED, LATEST SPO2 95%. LEFT HAND G22 IV LINE PATENT AND FLUSHING WELL. NO COMPLAINTS OF PAIN/DISCOMFORT AT THIS TIME. BED LOW AND LOCKED ON SEMI FOWLERS POSITION. CALL LIGHT IN REACH. WILL ENDORSE TO MORNING SHIFT FOR SUNSHINE.
--- NOTE | 2019-12-24 07:30 | NUR ---
MS/RN OPENING NOTE Patient resting in bed, A&O x 3. Denies any pain and discomfort at this time. Breathing even and non-labored on 10 L oxygen via face mask, saturating at 95-98%. No cardiac distress noted. IV access noted on L hand #22 gauge, both patent and intact, and flushing well. R chest permacath in place, with clean dressing noted. Sensation from all peripheral extremities intact. Side rails x 2 up, bed locked to its lowest position, call light in hand. Will continue with current medical management.
[2019-12-24 08:00] VITALS: BP 142/62
[2019-12-24 08:09] LABS: BASOPHILS % (AUTO) 0.5 % (0.0-2.0); EOSINOPHILS % (AUTO) 2.1 % (0.0-6.0); HEMATOCRIT 21 % (33-45); LYMPHOCYTES # (AUTO) 1.1 /CMM (0.8-4.8); LYMPHOCYTES % (AUTO) 15.6 % (20.0-44.0); MEAN CORPUSCULAR HGB CONC 34 g/dl (31.0-36.0); MEAN CORPUSCULAR VOLUME 97 fL (82-100); MONOCYTES # (AUTO) 0.8 /CMM (0.1-1.30); MONOCYTES % (AUTO) 11.1 % (2.0-12.0); NEUTROPHILS # (AUTO) 4.8 /CMM (1.8-8.9); NEUTROPHILS % (AUTO) 70.7 % (43.0-81.0); PLATELET COUNT (AUTO) 187 /CMM (150-450); RED BLOOD CELL COUNT(AUTO) 2.14 MIL/uL (4.0-5.2); WHITE BLOOD COUNT (AUTO) 6.8 K/uL (4.3-11.0)
[2019-12-24 08:20] LABS: IRON, SERUM 50 ug/dl (50-175); TOTAL IRON BINDING CAPACITY 210 ug/dl (250-450)
[2019-12-24 08:22] LABS: CALCIUM, SERUM 8.7 mg/dL (8.5-10.1); CARBON DIOXIDE 27 mmol/L (21-32); CHLORIDE 99 mmol/L (98-107); CREATININE 5.1 mg/dL (0.6-1.3); GLUCOSE 118 mg/dL (74-106); POTASSIUM 4.8 mmol/L (3.5-5.1); SODIUM SERUM 136 mmol/L (136-145); UREA NITROGEN, BLOOD 31 mg/dL (7-18)
[2019-12-24] MEDS: ATORVASTATIN 10 MG TABLET PO SCH (08:25)
[2019-12-24] MEDS: CHOLECALCIFEROL 1,000 UNIT TABLET (VIT D3) PO SCH (08:25)
[2019-12-24] MEDS: SEVELAMER CARBONATE 800 MG TABLET PO SCH ×2 (08:25→12:22)
[2019-12-24 08:26] VITALS: BP 142/62
[2019-12-24] MEDS: LISINOPRIL (10MG) 10 MG TABLET PO SCH (08:26)
[2019-12-24] MEDS: METOPROLOL SUCCINATE 25 MG TAB.SR.24H PO SCH (08:26)
--- NOTE | 2019-12-24 08:30 | NUR ---
MS/RN NOTE Titrated oxygen down to 8L via face mask, tolerating well at 95-98%. Will continue to monitor.
--- NOTE | 2019-12-24 08:30 | NUR ---
MS/RN NOTE Lab called to report patient's hemoglobin: 7.0. Held heparin. No s/s of bleeding noted. Notified MD, no new orders for now. Will continue to monitor.
[2019-12-24] MEDS: HEPARIN SODIUM, PORCINE 5000 UNITS/1 ML VIAL SQ SCH (09:00)
[2019-12-24] MEDS: CLOTRIMAZOLE 1% 15 GM TUBE TP SCH (09:36)
[2019-12-24 09:42] LABS: FERRITIN 622 ng/mL (8-388)
[2019-12-24 10:14] LABS: EOSINOPHILS % (MANUAL) 2 % (0-4); LYMPHOCYTES % (MANUAL) 9 % (16-48); MONOCYTES % (MANUAL) 12 % (0-11.0); NEUTROPHILS % (MANUAL) 77 (42-76)
--- NOTE | 2019-12-24 16:30 | NUR ---
MS/MULE OPERATOR NOTES Patient remained stable throughout shift. VSS, afebrile, no respiratory distress noted. No cardiac distress noted. Breathing and non-labored. IV access removed on L hand 22 gauge with catheter intact, placed clean dressing on site. No s/s of infection, infiltration, or bleeding noted. Sensation from all peripheral extremities intact. Took photos of skin impairments and placed on chart. Educated patient and gave report to nurse So, from [facility] regarding discharge instructions. Both verbalized understanding and answered all their questions to their satisfaction. Patient left facility safely with 2 landing gear mechanic via ambulance, with all hospital documents and belongings in hand.
== END 2019-12-24 16:49 | DRG 193 ==
LOC: ER 10:00 → TELE1 14:20 → MED 12-19 18:06 → TELE 12-19 19:04 → MED 12-20 09:04
PROVIDERS: ADMIT Nurse Practitioner Acute Care
PROC: 30233N1 Transfusion of Nonautologous Red Blood Cells into Peripheral Vein, Percutaneous Approach (ICD-10-PCS; principal; 2019-12-19)
PROC: 5A1D70Z Performance of Urinary Filtration, Intermittent, Less than 6 Hours Per Day (ICD-10-PCS; 2019-12-19)
DX: J15.9 Unspecified bacterial pneumonia (principal); J96.02 Acute respiratory failure with hypercapnia; N18.6 End stage renal disease; J96.01 Acute respiratory failure with hypoxia; D68.69 Other thrombophilia; I13.2 Hypertensive heart and chronic kidney disease with heart failure and with stage 5 chronic kidney disease, or end stage renal disease; I50.32 Chronic diastolic (congestive) heart failure; Z99.2 Dependence on renal dialysis; I48.91 Unspecified atrial fibrillation; E11.22 Type 2 diabetes mellitus with diabetic chronic kidney disease; E03.9 Hypothyroidism, unspecified; D63.8 Anemia in other chronic diseases classified elsewhere; E87.6 Hypokalemia; I50.9 Heart failure, unspecified; R53.1 Weakness; I27.20 Pulmonary hypertension, unspecified; E83.9 Disorder of mineral metabolism, unspecified; Z79.4 Long term (current) use of insulin; E78.5 Hyperlipidemia, unspecified; I48.0 Paroxysmal atrial fibrillation; Z79.01 Long term (current) use of anticoagulants; G47.33 Obstructive sleep apnea (adult) (pediatric)
CPT/HCPCS: 36415; 36600; 71045-TC; 80048-TC; 80053-TC; 80061-TC; 80076-TC; 80202-TC; 82272-TC; 82728-TC; 82803-TC; 82962-TC; 83540-TC; 83735-TC; 84100-TC; 84443-TC; 85025-TC; 85730-TC; 86706; 86850-TC; 87081-TC; 87340; 90935-TC; 92521; 92526; 93970-TC; 94760-TC; 94799-TC; C9803; G0378; J0456; J0696; J0885; J1644; J1815; J3370; J7040; J7050; J7060; P9016-BL